=== PATIENT | female | born 2000 | race Two or more races ===

== ENCOUNTER 2022-01-05 23:50 | Inpatient (IN) | payer OTHER ==
[~2022-01-05] VITALS: Ht 165.1 cm; Wt 65.8 kg
[2022-01-08] MEDS ORDERED: DROSPIRENONE-E1 EAC1 (08:46)
[2022-01-09] MEDS ORDERED: PERCOCET 5-3251 EACH PO (09:02)
== END 2022-01-12 11:05 | disposition home or self-care (01) | DRG 833 ==
LOC: ER 23:50 → OB/GYN 01-06 07:05
PROVIDERS: ADMIT Obstetrics & Gynecology; ATTEND Obstetrics & Gynecology
PROC: 4A1HXCZ Monitoring of Products of Conception, Cardiac Rate, External Approach (ICD-10-PCS; principal; 2022-01-06)
PROC: BW40ZZZ Ultrasonography of Abdomen (ICD-10-PCS; 2022-01-06)
PROC: BY49ZZZ Ultrasonography of First Trimester, Single Fetus (ICD-10-PCS; 2022-01-06)
PROC: BY4CZZZ Ultrasonography of Second Trimester, Single Fetus (ICD-10-PCS; 2022-01-11)
DX: O23.02 Infections of kidney in pregnancy, second trimester (principal); Z3A.14 14 weeks gestation of pregnancy; Z20.822 Contact with and (suspected) exposure to COVID-19

== ENCOUNTER 2022-06-14 08:27 | Outpatient (CLI) | payer OTHER ==
[~2022-06-14 08:27] MED LIST: DROSPIRENONE-E1 EAC1; PERCOCET 5-3251 EACH PO
== END 2022-06-14 09:01 | disposition home or self-care (01) ==
LOC: NST 08:27
PROVIDERS: ATTEND Obstetrics & Gynecology
DX: Z34.83 Encounter for supervision of other normal pregnancy, third trimester (principal)

== ENCOUNTER 2022-06-28 09:37 | Inpatient (IN) | payer OTHER ==
[~2022-06-28] VITALS: Ht 165.1 cm; Wt 81.6 kg
[2022-06-28] MEDS ORDERED: PRENATAL + DHA1 EAC1 (11:31)
[2022-06-28] MEDS ORDERED: FOLIC ACID20 MG (11:31)
[2022-06-28] MEDS ORDERED: IRON236 MG (11:32)
== END 2022-06-30 16:20 | disposition home or self-care (01) | DRG 788 ==
LOC: LDR 09:37 → OB/GYN 17:51
PROVIDERS: ADMIT Obstetrics & Gynecology; ATTEND Obstetrics & Gynecology
PROC: 4A1HXCZ Monitoring of Products of Conception, Cardiac Rate, External Approach (ICD-10-PCS; 2022-06-28)
PROC: 10D00Z1 Extraction of Products of Conception, Low, Open Approach (ICD-10-PCS; principal; 2022-06-28 13:30)
DX: O69.4XX0 Labor and delivery complicated by vasa previa, not applicable or unspecified (principal); O99.820 Streptococcus B carrier state complicating pregnancy; Z3A.37 37 weeks gestation of pregnancy; Z37.0 Single live birth; Z20.822 Contact with and (suspected) exposure to COVID-19

== ENCOUNTER 2022-07-10 12:20 | Emergency (ER) | payer OTHER ==
[~2022-07-10] VITALS: Ht 165.1 cm; Wt 68.0 kg
[~2022-07-10 12:20] MED LIST changes: +FOLIC ACID20 MG; +IRON236 MG; +PRENATAL + DHA1 EAC1
== END 2022-07-10 18:35 | disposition home or self-care (01) ==
LOC: ER 12:20
DX: N39.0 Urinary tract infection, site not specified (principal); Z20.822 Contact with and (suspected) exposure to COVID-19

== ENCOUNTER 2025-08-11 10:54 | Emergency (ER) | payer OTHER ==
[~2025-08-11] VITALS: Ht 162.6 cm; Wt 63.5 kg
[2025-08-11] MEDS ORDERED: KETOROLAC TROMETHAMINE 60 MG VIAL IM ONE (11:45)
[2025-08-11] MEDS ORDERED: DEXAMETHASONE SODIUM PHOSPHATE 4 MG/ML VIAL IM ONE (11:45)
[2025-08-11 12:22] LABS: BASO % 0.1 % (0.1-1.2); EOS # 0.11 (0.04-0.54); EOS % 1.0 % (0.7-7.0); LYMPH # 1.60 (1.18-3.74); LYMPH % 13.9 % (19.3-53.1); MEAN PLATELET VOLUME 11.00 fl (9.4-12.4); MONO # 0.46 (0.24-0.82); MONO % 4.0 % (4.7-12.5); NEUT # 9.31 (1.56-6.13); NEUT % 80.7 % (34.0-71.1); RED CELL DISTRIBUTION WIDTH 12.2 % (11.6-14.4)
== END 2025-08-11 14:18 | disposition home or self-care (01) ==
LOC: ER 10:54
PROVIDERS: General Practice
DX: J32.1 Chronic frontal sinusitis (principal); G43.909 Migraine, unspecified, not intractable, without status migrainosus